=== PATIENT | male | born 1980 | race African-American/Black ===

== ENCOUNTER 2021-03-22 07:22 | Emergency (ER) | payer SELFPAY ==
[~2021-03-22] VITALS: Ht 182.9 cm; Wt 91.0 kg
[2021-03-22] MEDS ORDERED: LEVETIRACETAM 500MG PREMIX 100 ML IV ONE ×2 (07:45→14:00)
[2021-03-22] MEDS ORDERED: LORAZEPAM 2MG/ML CPJ IV ONE (07:45)
[2021-03-22] MEDS ORDERED: LACTATED RINGERS 1,000 ML IV SCH (08:15)
[2021-03-22 08:39] LABS: CLARITY URINE CLOUDY (CLEAR); COLOR URINE YELLOW (YELLOW); KETONES URINE TRACE (NEGATIVE); LEUKOCYTE ESTERASE URINE 1+ (NEGATIVE); NITRITE URINE NEGATIVE (NEGATIVE); OCCULT BLOOD URINE 3+ (NEGATIVE); PROTEIN URINE 3+ (NEGATIVE); SPECIFIC GRAVITY URINE 1.019 (1.005-1.030); UROBILINOGEN URINE 0.2 E.U./dL (0.2-1.0)
[2021-03-22 08:57] LABS: *BARBITURATES SCREEN URINE NEGATIVE (NEGATIVE); CANNABINOID URINE SCREEN PRESUMTIVE POSITIVE (NEGATIVE)
[2021-03-22 08:58] LABS: *AMPHETAMINES SCREEN URINE NEGATIVE (NEGATIVE); *BENZODIAZEPINES SCREEN URINE NEGATIVE (NEGATIVE); *COCAINE SCREEN URINE NEGATIVE (NEGATIVE); METHADONE URINE SCREEN NEGATIVE (NEGATIVE); OPIATES URINE SCREEN NEGATIVE (NEGATIVE); PHENCYCLIDINE URINE SCREEN NEGATIVE (NEGATIVE)
[2021-03-22] MEDS ORDERED: SODIUM CHLORIDE 0.9% 1,000 ML IV ONE (10:00)
[2021-03-22 10:24] LABS: MEAN CORPUSCULAR HEMOGLOBIN 28.6 pg (28.0-32.0); MEAN CORPUSCULAR VOLUME 85.6 fL (80.0-94.0); PLATELET 255 x1000/uL (130-400); RED BLOOD CELL COUNT 4.55 mill/uL (4.7-6.1); RED CELL DISTRIBUTION WIDTH 14.4 % (11.6-14.6)
[2021-03-22 10:31] LABS: CHLORIDE 105 mEq/L (98-107)
[2021-03-22 10:34] LABS: ETHANOL BLOOD < 10 mg/dL
[2021-03-22 10:42] LABS: CARBAMAZEPINE < 0.5 ug/mL (4-12)
[2021-03-22 10:46] LABS: PHENOBARBITAL < 2.1 ug/mL (15.0-40.0)
[2021-03-22 10:55] LABS: VALPROIC ACID < 3.0 ug/mL (50-100)
[2021-03-22 11:37] LABS: PLATELET ESTIMATE NORMAL
[2021-03-22] MEDS ORDERED: KEPP500 MT (16:03)
[2021-03-22 18:17] VITALS: BP 131/85
== END 2021-03-22 19:25 | disposition home or self-care (01) ==
LOC: ER 07:43
DX: G93.40 Encephalopathy, unspecified (principal); R56.9 Unspecified convulsions; F17.290 Nicotine dependence, other tobacco product, uncomplicated
CPT/HCPCS: 36415; 71045; 80053; 80156; 80165; 80184; 80185; 80305; 80320; 81003; 82140; 82962; 83735; 84484; 85025; 87086; 96361; 96365; 96366; 96375; 99291; J1953; J2060; J7030; Z7610; G0480